=== PATIENT | female | born 1960 | race Caucasian/White ===

== ENCOUNTER 2018-11-04 00:38 | Inpatient (IN) | payer OTHER, MEDICARE ==
[2018-11-03 14:55] LABS: INR 0.87
[2018-11-04] VITALS (13 sets, daily range): BP systolic 113–147; BP diastolic 57–93
[~2018-11-04] VITALS: Ht 157.5 cm; Wt 92.5 kg
[~2018-11-04 00:38] MED LIST: ALB18R INH; ASPI81TA94 PO; ATOR40TA24 PO; B CO1TAB16 PO; CALC600T63 PO; CELE-1 PO; CHOL10005 PO; EREN70AU INJ; LAMO150T36 PO; LEVO100T95 PO; LIO5 PO; METF-450 PO; MULT-1176 PO; NEBI5TAB PO; PANT40TA65 PO; TRINTELLIX PO; VORT10TA PO; ZOLP-1 PO
--- NOTE | 2018-11-04 05:05 | LEVENE H&P ---
DATE OF ADMISSION: November 04, 2018 IDENTIFICATION/CHIEF COMPLAINT Sandra is a 57-year-old woman with a chief complaint of right knee pain. HISTORY OF PRESENT ILLNESS Patient has a longstanding history of knee arthritis, progressively painful and debilitating, refractory to conservative care. Surgery is indicated to relieve symptoms after failure of nonoperative measures. PAST MEDICAL HISTORY Notable for: 1. Hypertension. 2. Hypothyroidism. 3. Migraine headaches. 4. Prediabetes. ALLERGIES None. CURRENT MEDICATIONS 1. Synthroid 12.5 mcg a day. 2. Liothyronine 5 mcg p.o. daily. 3. Bystolic 5 mg p.o. daily. 4. Lamotrigine 150 mg p.o. b.i.d. 5. Pantoprazole 40 mg p.o. daily. 6. Atorvastatin 40 mg p.o. daily. 7. Trintellix 10 mg p.o. b.i.d. 8. Celebrex 200 mg p.o. daily. 9. Metformin 500 mg p.o. b.i.d. 10. A variety of vitamins. PAST SURGICAL HISTORY Notable for: 1. Appendectomy. 2. Cholecystectomy. 3. Hysterectomy. 4. Knee operation. 5. Hernia x2. 6. Lap-Band. 7. Thyroid surgery. 8. Breast reduction. 9. Carpal tunnel release. PHYSICAL EXAMINATION GENERAL: This is a healthy female who appears stated age. HEENT: Normocephalic, atraumatic. NECK: Supple. LUNGS: Clear. HEART: Regular. ABDOMEN: Soft. ORTHOPEDIC: The right knee has effusion present. She has crepitus noted. Gross stability is good. Extensor function is intact. Calves nontender. Neurovascular function is intact. Radiographs demonstrate end-stage knee arthritis. ASSESSMENT Right knee end-stage degenerative joint disease, refractory to conservative care. PLAN Per patient request, will proceed with total knee arthroplasty. Nature of the procedure, risks, benefits, the anticipated rehab course reviewed. The risks of the procedure include but are not limited to , major medical or anesthetic complications, infection, neurovascular injury, blood transfusion, stiffness, scarring, fracture, tendon rupture, instability, implant loosening, migration, or failure, persistent or recurrent pain, need for additional surgery, and other unforeseen. She understands and wishes to proceed. Signed permit is placed in the chart. No guarantees are given or implied. [facility]
[2018-11-04] MEDS ORDERED: NORMOSOL R SOLN(*) 1000 ML BAG 1,000 ML IV PRN ×2 (06:15→09:25)
[2018-11-04] MEDS ORDERED: ceFAZolin(*) 2GM/D5W 50ML 50 ML IVPB ONE (06:15)
[2018-11-04] MEDS ORDERED: ACETAMINOPHEN 500 MG TAB PO ONE (06:15)
[2018-11-04] MEDS ORDERED: MIDAZOLAM 2 MG/2 ML VIAL IVP PRN (06:15)
[2018-11-04] MEDS ORDERED: TRANEXAMIC AC 1000 MG/10ML SDV 1,000 MG in DEXTROSE 5% 50 ML BAG 50 ML IV ONE (06:15)
[2018-11-04] MEDS ORDERED: PREGABALIN 150 MG CAPSULE PO ONE (06:15)
[2018-11-04] MEDS ORDERED: ROPIVACAINE/EPI/CLONIDINE/KET 50 ML SYRINGE INJ ONE (06:15)
[2018-11-04] MEDS ORDERED: LIDOCAINE/SOD BICARB 8.4% SYR ID ONE (06:15)
[2018-11-04] MEDS ORDERED: DEXAMETHASONE SOD PHOS 10MG/ML ONE (07:01)
[2018-11-04] MEDS ORDERED: ONDANSETRON 4 MG/2 ML VIAL ONE (07:01)
[2018-11-04] MEDS ORDERED: PROPOFOL EMUL(*) 10MG/ML 20 ML 40 ML ONE (07:01)
[2018-11-04] MEDS ORDERED: PHENYLEPHRINE 10 MG/1 ML VIAL ONE (07:45)
[2018-11-04] MEDS ORDERED: VANCOMYCIN 1 GM VIAL ONE (08:22)
[2018-11-04] MEDS ORDERED: PROPOFOL EMUL(*) 10MG/ML 20 ML 120 ML ONE (08:29)
[2018-11-04] MEDS ORDERED: BENZOCAINE/MENTHOL 1 EACH LOZG PO PRN (09:25)
[2018-11-04] MEDS ORDERED: diphenhydrAMINE 25 MG CAP PO PRN (09:25)
[2018-11-04] MEDS ORDERED: MAGNESIUM HYDROXIDE* 30ML UDCP PO PRN (09:25)
[2018-11-04] MEDS ORDERED: BISACODYL 10 MG SUPP PR PRN (09:25)
[2018-11-04] MEDS ORDERED: FLUSH 10 ML SYR IVP PRN (09:25)
[2018-11-04] MEDS ORDERED: diphenhydrAMINE 50 MG/ML VIAL IVP PRN (09:25)
[2018-11-04] MEDS ORDERED: PROMETHAZINE 25 MG/ML 1 ML AMP IVP PRN (09:25)
--- NOTE | 2018-11-04 09:28 | OPERATIVE REPORT 1 ---
EVENT DATE: November 04, 2018 SURGEON: Dami Valencia MD ANESTHESIOLOGIST: Carmine Means MD ANESTHESIA: General plus spinal. INTERNAL COMBUSTION ENGINEER: Chadwick Dixon PA-C PREOPERATIVE DIAGNOSIS Right knee degenerative joint disease. POSTOPERATIVE DIAGNOSIS Right knee degenerative joint disease. PROCEDURE PERFORMED Right total knee arthroplasty. ESTIMATED BLOOD LOSS Minimal. DRAINS None. SPECIMENS None. COMPLICATIONS None apparent. TOURNIQUET TIME 41 minutes. IMPLANTS USED Gaby Triathlon knee system, a 3 right PS femur, a 3 standard tibial baseplate, a 33 mm universal symmetric all polyethylene patella button, 13 mm PS tibial tray liner. INDICATIONS The patient is 58-year-old woman with intractable pain that is felt related to end-stage knee arthritis. Surgery is indicated to relieve symptoms after failure of nonoperative measures. DESCRIPTION OF PROCEDURE The patient was taken to the operating room and placed supine on the operating table. Spinal block was administered by the anesthesiologist. General anesthesia was induced. Antibiotics and TXA were administered IV. The right lower extremity was prepped and draped in the usual sterile fashion for orthopedic surgery. The limb was exsanguinated with an Esmarch bandage. The tourniquet was inflated to 275 mmHg. A midline longitudinal incision was made and carried down through the skin and subcutaneous tissue to the extensor mechanism. A full-thickness flap was developed far enough medially to allow medial parapatellar arthrotomy to be performed. The patella was everted. The knee was brought into a flexed position. The fat pad, anterior horns of the menisci and cruciate ligaments were debrided. Subperiosteal release was initiated in a very limited titrated fashion to start to balance the knee. A step drill was used to enter the distal femur. A 10-inch long alignment guide was used to engage the isthmus. Cut was set for 6 degrees of valgus relative to anatomic axis. A 10 mm resection block was applied and pinned. Cut was made with an oscillating saw. The AP sizing guide was applied to the distal femoral cut and positioned for 3 degrees of external rotation relative to the posterior condyles. A size 3 was optimal without risk of notching. The four-in-one cutting block was applied. Anterior, posterior, posterior chamfer and anterior chamfer cuts were made respectively. A PS block was applied and centered mediolateral and the bone was resected from the box. The trial femur has nice [id number] fit. Attention was turned to tibial preparation. The extramedullary guide was applied and positioned for varus, valgus, posterior slope and rotation. This is set to resect 9 from the relatively intact lateral tibial plateau. It was dropped down a couple of millimeters to ensure an adequate cut. The block was pinned, extramedullary alignment check was made and the cut was made with an oscillating saw. After osteophyte removal and removal of posterior condylar bone, gaps were balanced and symmetric with no additional releases required. The size 3 baseplate provides optimal coverage without soft tissue overhang and this was inserted along with a trial liner and trial femur. The knee was brought to full extension. The patella was taken from a starting thickness of 18 mm to a residual of 14 with a free hand cut. The 33 provides optimal bony coverage without soft tissue overhang. Lug holes were drilled. The patella tracts nicely with a no-touch technique. Final tibial preparation consisted of ensuring appropriate rotational and translational position of the component. The box was reamed and the fin was punched. Surfaces were lavaged. A mix of polymethylmethacrylate is made and the components were cemented in a single stage. Irrisept irrigation is used during cement polymerization to minimize risks of postoperative infection. The wounds were copiously irrigated and when cement fully polymerized, trial liners were inserted. The 13 fills up the gap ideally, allowing the knee to drop to full extension without hyperextension, providing optimal soft tissue tension and stability. The tray was lavaged and dried and the actual liner was locked into the base point. Arthrotomy was closed in flexion with #2 Ethibond, subcutaneous with 3-0 Vicryl and skin with a ZipLine closure. Xeroform was applied followed by a dry, sterile dressing and a compression wrap. The patient was awakened from the anesthesia and taken to the recovery room in stable condition, having tolerated the procedure well. Plan is for standard TKA rehab protocol. [facility]
--- NOTE | 2018-11-04 10:06 | RADIOLOGY IMAGING REPORT ---
FACILITY: [facility] [place] PATIENT NAME: Sandra Becerra : 1960 MR: [id number] V: [id number] EXAM DATE: ORDERING PHYSICIAN: SONYA MAYA TECHNOLOGIST: Location: [facility] Patient: Sandra Becerra : 1960 Visit/Account:[id number] Date of Sevice: 11/04/2018 KNEE LIMITED RIGHT HISTORY: S/P TOTAL KNEE REPLACEMENT CHECK PLACEMENT Additional history: None COMPARISON: None. FINDINGS: Patient status post right total knee arthroplasty with patellar resurfacing. Hardware unremarkable i n appearance. Iatrogenic air seen within the joint and soft tissues. No free bone fragment seen. IMPRESSION: Status post right TKA unremarkable in appearance. Report Dictated By: Jhonathan Schuster MD at 11/04/2018 10:01 AM Report E-Signed By: Jhonathan Schuster MD at 11/04/2018 10:02 AM WSN:[email or web address]
[2018-11-04] MEDS: APAP/HYDROCODONE 325/7.5 TAB PO PRN ×3 (10:20→19:11)
[2018-11-04] MEDS ORDERED: ALBUTEROL SULFATE INH PRN (11:25)
[2018-11-04] MEDS ORDERED: INSULIN HUM LISPRO 100 UN/ML 3 ML VIAL SUBQ PRN (11:35)
--- NOTE | 2018-11-04 11:35 | Hospitalist Consultation ---
History of Present Illness Requesting Physician Dr. Valencia Reason for Consult Medical Management of Comorbidities Chief Complaint s/p right knee replacement History of Present Illness She was admitted s/p right knee replacement. It is reported the surgery went well and without complication. History Problems: (1) Depression Status: Chronic (2) GERD (gastroesophageal reflux disease) Status: Chronic (3) Hyperlipidemia Status: Chronic (4) Hypertension Status: Chronic (5) Hypothyroidism Status: Chronic (6) JUAN ANTONIO (obstructive sleep apnea) Status: Chronic (7) Type 2 diabetes mellitus Status: Chronic Home Meds Reported Medications Erenumab-Aooe (Aimovig Autoinjector) 70 Mg/Ml Auto.injct, 70 MG INJ Q30D 10/28/18 Albuterol Sulfate (VENTOLIN HFA) 18 Gm Inh, 2 PUFF INH Q4-6H PRN for WHEEZING, INH 10/28/18 Vortioxetine Hydrobromide (Brintellix) 10 Mg Tablet, 1 TAB PO BID 10/28/18 Multivits,Ca,Minerals/Iron/Fa (WOMEN'S DAILY CAPLET) 1 Each Tablet, 1 EACH PO QDAY 10/28/18 Aspirin (ASPIRIN) 81 Mg Tab.chew, 81 MG PO QHS, TAB.CHEW 10/28/18 Calcium Carbonate (CALCIUM) 600 Mg Tablet, 600 MG PO QDAY 10/28/18 B Complex With Vitamin C (SUPER B COMPLEX-VITAMIN C) 1 Each Tablet, 1 EACH PO QDAY 10/28/18 Cholecalciferol (Vitamin D3) (VITAMIN D3) 1,000 Unit Tablet, 5000 UNIT PO QDAY, TAB 10/28/18 Zolpidem Tartrate (AMBIEN) 5 Mg Tablet, 1 TAB PO QHS, TAB 10/28/18 Celecoxib (CELEBREX) 200 Mg Capsule, 200 MG PO QAM, CAPSULE 10/28/18 Metformin Hcl (METFORMIN HCL) 500 Mg Tablet, 1 TAB PO BID, TAB 10/28/18 Pantoprazole Sodium (PANTOPRAZOLE SODIUM) 40 Mg Tablet.dr, 40 MG PO QAM, TAB.SR 10/28/18 Lamotrigine (LAMOTRIGINE) 150 Mg Tablet, 150 MG PO BID 10/28/18 Nebivolol Hcl (BYSTOLIC) 5 Mg Tablet, 5 MG PO QAM 10/28/18 Atorvastatin Calcium (LIPITOR) 40 Mg Tablet, 1 TAB PO QAM, TAB 10/28/18 Liothyronine Sodium (LIOTHYRONINE SODIUM) 5 Mcg Tablet, 5 MCG PO QAM 10/28/18 Levothyroxine Sodium (SYNTHROID) 100 Mcg Tablet, 125 MCG PO QAM 10/28/18 Discontinued Reported Medications [Trintellix] No Conflict Check, 10 MG PO BID 10/28/18 Allergies: Coded Allergies: No Known Drug Allergies (Unverified , 10/28/18) Hx Smoking: Yes (1 PACK/WEEK X 10 YEARS) Smoking Status: Former Smoker When Quit Tobacco?: 2008 Caffeine Intake: Coffee Caffeine/Cups Per Day: 1/DAY Hx Alcohol Use: No Hx Substance Use Disorder: No History of IV Drug Use: No Review of Systems All Systems Reviewed/Normal: Yes, Except as Noted Exam Vital Signs Vital Signs Date Time Temp Pulse Resp B/P (MAP) Pulse Ox O2 Delivery O2 Flow Rate FiO2 11/04/18 09:59 97.6 82 16 118/66 (83) 95 Nasal Cannula 2.0 General Appearance: Alert, Awake, No Acute Distress, Afebrile Neuro: No Gross deficits Cardiovascular: Regular Rate and Rhythm Respiratory: No Respiratory Distress, Clear to Auscultation Psych: Alert & Oriented X3, Appropriate Mood & Affect Assessment and Plan Problems: (1) Status post right knee replacement Status: Acute Assessment & Plan: Followed by Dr. Valencia. She will be placed on Aspirin for DVT prophylaxis. (2) Hypertension Status: Chronic Assessment & Plan: Continue chronic Bystolic. This was restarted with hold parameters. (3) Type 2 diabetes mellitus Status: Chronic Assessment & Plan: Continue chronic Metformin (start tomorrow morning). She will also be placed on ADA diet, Ac/HS blood glucose monitoring, and SS insulin #1. (4) Hyperlipidemia Status: Chronic Assessment & Plan: Continue chronic Atorvastatin. (5) Hypothyroidism Status: Chronic Assessment & Plan: Secondary to thyroid cancer. Continue chronic Levothyroxine and Liothyronine. (6) Depression Status: Chronic Assessment & Plan: Continue chronic Brintellix. (7) GERD (gastroesophageal reflux disease) Status: Chronic Assessment & Plan: Continue chronic PPI. (8) JUAN ANTONIO (obstructive sleep apnea) Status: Chronic Assessment & Plan: She does use CPAP at home occasionally. She did not bring her machine to use during admission. At this time, she does not want any replacement except for oxygen to sleep. Venous Thromboembolism Antithrombotics Is Pt On Any Antithrombotics?: No Exam Sepsis Risk: No Definite Risk Problem Qualifiers (1) Hypertension: Hypertension type: essential hypertension Qualified Codes: I10 - Essential (primary) hypertension ELVIRA CARRANZAP Nov 04, 2018 11:35
[2018-11-04] MEDS ORDERED: ALBUTEROL 8 GM INHALER INH PRN (11:40)
[2018-11-04] MEDS: DIAZEPAM 5 MG TAB PO PRN ×2 (11:53→18:06)
--- NOTE | 2018-11-04 12:25 | NUR ---
Physical Therapy Impression PT eval completed with pt interview and chart review. Pt just completed ambulation with nursing to/from BR and c/o increased pain now. Pt tolerated CPM trng with education on self progression with flexion. Settings currently at 0-25 degrees due to increased pain. PT will return for a second session later this afternoon to address functional mobility once pain is more controlled. Physical Therapy Goals 1. Pt to be CGA/Min assist for bed mobility and supine<>sit trnsfrs 2. Pt to be SBA/CGA for sit to/from stand transfers 3. Pt to be SBA/Modified indep for ambulation x 100' with least restrictive device 4. Pt to kenneth up/down 4 steps with rail and SBA/Modified indep and least restrictive device. Patient's Goals
[2018-11-04] MEDS ORDERED: NS(*) 0.9% 250 ML BAG 250 ML ONE (16:40)
[2018-11-04] MEDS: ceFAZolin(*) 1 GM VIAL 1 GM in NS(*) 0.9% 100 ML MINI-BAG 100 ML IVPB SCH (16:52)
[2018-11-04] MEDS: CELECOXIB 200 MG CAP PO SCH (16:53)
--- NOTE | 2018-11-04 18:02 | NUR ---
Physical Therapy Impression Pt demos excellent ability to bear weight on involved LE, yet indicates increased pain. Walker was lowered to allow for better UE participation in order to off load TKA for improved pain management. Pt tolerated ambulation to/from doorway with step-to gait pattern. Pt educated on leg assistant professor of radiology use to improve indep with bed mobility and supine to/from sit. Pt also educated on self progression of flexion with CPM as tolerated. Physical Therapy Goals 1. Pt to be CGA/Min assist for bed mobility and supine<>sit trnsfrs 2. Pt to be SBA/CGA for sit to/from stand transfers 3. Pt to be SBA/Modified indep for ambulation x 100' with least restrictive device 4. Pt to kenneth up/down 4 steps with rail and SBA/Modified indep and least restrictive device. Patient's Goals
[2018-11-04] MEDS: ACETAMINOPHEN 325 MG TAB PO PRN (20:33)
[2018-11-04] MEDS: lamoTRIgine 100 MG TAB PO SCH (20:34)
[2018-11-04] MEDS: ZOLPIDEM TARTRATE 5 MG TAB PO PRN (20:34)
[2018-11-04] MEDS: VORTIOXETINE HYDROBROMIDE 10 MG TAB PO SCH (21:00)
[2018-11-04] MEDS ORDERED: VORTIOXETINE HYDROBROMIDE PO SCH (21:00)
[2018-11-05] MEDS: DIAZEPAM 5 MG TAB PO PRN ×5 (00:04→23:33)
[2018-11-05] MEDS: APAP/HYDROCODONE 325/7.5 TAB PO PRN ×6 (00:05→22:40)
[2018-11-05 00:08] VITALS: BP 133/81
[2018-11-05] MEDS: ceFAZolin(*) 1 GM VIAL 1 GM in NS(*) 0.9% 100 ML MINI-BAG 100 ML IVPB SCH ×2 (01:03→08:58)
[2018-11-05] MEDS: LEVOTHYROXINE SOD 0.125 MG TAB PO SCH (05:18)
[2018-11-05 07:59] VITALS: BP 132/83
[2018-11-05] MEDS: ATORVASTATIN 40 MG TAB PO SCH (08:58)
[2018-11-05] MEDS: PANTOPRAZOLE SOD 40 MG TABEC PO SCH (08:58)
[2018-11-05] MEDS: ASPIRIN 325 MG TAB PO SCH (08:58)
[2018-11-05] MEDS: metFORMIN HCL 500 MG TAB PO SCH ×2 (08:58→20:28)
[2018-11-05] MEDS: CELECOXIB 200 MG CAP PO SCH ×2 (08:58→16:57)
[2018-11-05] MEDS: LIOTHYRONINE SODIUM 5 MCG TAB PO SCH (08:59)
[2018-11-05] MEDS: NEBIVOLOL HCL 5 MG TAB PO SCH (08:59)
[2018-11-05] MEDS: lamoTRIgine 100 MG TAB PO SCH ×2 (09:00→20:30)
[2018-11-05] MEDS: VORTIOXETINE HYDROBROMIDE 10 MG TAB PO SCH ×2 (09:01→20:30)
--- NOTE | 2018-11-05 10:28 | Hospitalist Progress Note ---
Subjective Progress Notes Subjective She was admitted s/p knee replacement. She had no acute events overnight. Patient Complains of: Cardiovascular: No: Chest Pain Respiratory: No: Shortness of Breath Physical Exam Vital Signs Date Time Temp Pulse Resp B/P (MAP) Pulse Ox O2 Delivery O2 Flow Rate FiO2 11/05/18 10:09 94 11/05/18 07:59 Nasal Cannula 0.5 11/05/18 07:59 98.2 81 14 132/83 (99) Intake and Output 11/05/18 01:00 Intake Total 2148 ml Balance 2148 ml Intake Oral 444 ml IV Total 1704 ml # Voids 4 General Appearance: Alert, Awake, No Acute Distress, Afebrile Neuro: No Gross deficits Cardiovascular: Regular Rate and Rhythm Respiratory: No Respiratory Distress, Clear to Auscultation Psych: Alert & Oriented X3, Appropriate Mood & Affect Assessment and Plan Problems: (1) Status post right knee replacement Status: Acute Assessment & Plan: Followed by Dr. Valencia. She will be placed on Aspirin for DVT prophylaxis. (2) Hypertension Status: Chronic Assessment & Plan: Continue chronic Bystolic. This was restarted with hold parameters. (3) Type 2 diabetes mellitus Status: Chronic Assessment & Plan: Continue chronic Metformin. She will also be placed on ADA diet, Ac/HS blood glucose monitoring, and SS insulin #1. (4) Hyperlipidemia Status: Chronic Assessment & Plan: Continue chronic Atorvastatin. (5) Hypothyroidism Status: Chronic Assessment & Plan: Secondary to thyroid cancer. Continue chronic Levothyroxine and Liothyronine. (6) Depression Status: Chronic Assessment & Plan: Continue chronic Brintellix. (7) GERD (gastroesophageal reflux disease) Status: Chronic Assessment & Plan: Continue chronic PPI. (8) JUAN ANTONIO (obstructive sleep apnea) Status: Chronic Assessment & Plan: She does use CPAP at home occasionally. She did not bring her machine to use during admission. At this time, she does not want any replacement except for oxygen to sleep. Exam Sepsis Risk: No Definite Risk Problem Qualifiers (1) Hypertension: Hypertension type: essential hypertension Qualified Codes: I10 - Essential (primary) hypertension ELVIRA CARRANZA [employer] Nov 05, 2018 10:28
[2018-11-05 10:54] VITALS: Ht 157.5 cm; Wt 92.5 kg
--- NOTE | 2018-11-05 11:25 | NUR ---
Physical Therapy Impression Pt is doing exceptionally well. She is able to perform supine to sit with use of SPC as leg manager report without assistance. Pt demo's ability to increase ROM on CPM independently. Sit <> stand from EOB/chair, SBA/Mod I. Ambulation x 110' with FWW, SBA/Mod I. Pt on room air throughout, SpO2 94% after activity. Pt up in sarah chair with LE's elevated at end of session. Pt would like to complete stairs this afternoon to simulate entry into pt's home as she plans to D/C home tomorrow with OP PT. Physical Therapy Goals 1. Pt to be CGA/Min assist for bed mobility and supine<>sit trnsfrs 2. Pt to be SBA/CGA for sit to/from stand transfers 3. Pt to be SBA/Modified indep for ambulation x 100' with least restrictive device 4. Pt to kenneth up/down 4 steps with rail and SBA/Modified indep and least restrictive device. Patient's Goals
--- NOTE | 2018-11-05 14:34 | NUR ---
Physical Therapy Impression PT goals met with stair negotiation. From a mobility standpoint pt is ready for d/c when medically appropriate. Physical Therapy Goals 1. Pt to be CGA/Min assist for bed mobility and supine<>sit trnsfrs 2. Pt to be SBA/CGA for sit to/from stand transfers 3. Pt to be SBA/Modified indep for ambulation x 100' with least restrictive device 4. Pt to kenneth up/down 4 steps with rail and SBA/Modified indep and least restrictive device. Patient's Goals
[2018-11-05 14:42] VITALS: BP_SYST 101; BP_SYST 130; BP_DIAS 60; BP_DIAS 74
[2018-11-05 18:38] VITALS: BP 132/71
[2018-11-05] MEDS: ZOLPIDEM TARTRATE 5 MG TAB PO PRN (20:28)
[2018-11-05] MEDS: ACETAMINOPHEN 325 MG TAB PO PRN (20:28)
[2018-11-05 23:25] VITALS: BP 146/83
[2018-11-06] MEDS: APAP/HYDROCODONE 325/7.5 TAB PO PRN ×2 (02:59→09:38)
[2018-11-06 03:00] VITALS: BP 156/82
[2018-11-06] MEDS: LEVOTHYROXINE SOD 0.125 MG TAB PO SCH (05:30)
[2018-11-06] MEDS: DIAZEPAM 5 MG TAB PO PRN (05:30)
[2018-11-06 06:48] VITALS: BP 135/77
[2018-11-06] MEDS: NEBIVOLOL HCL 5 MG TAB PO SCH (08:28)
[2018-11-06] MEDS: CELECOXIB 200 MG CAP PO SCH (08:28)
[2018-11-06] MEDS: metFORMIN HCL 500 MG TAB PO SCH (08:28)
[2018-11-06] MEDS ORDERED: HYDR-654 PO (08:28)
[2018-11-06] MEDS: PANTOPRAZOLE SOD 40 MG TABEC PO SCH (08:28)
[2018-11-06] MEDS: ASPIRIN 325 MG TAB PO SCH (08:28)
[2018-11-06] MEDS: ATORVASTATIN 40 MG TAB PO SCH (08:28)
[2018-11-06] MEDS: LIOTHYRONINE SODIUM 5 MCG TAB PO SCH (08:28)
[2018-11-06] MEDS: lamoTRIgine 100 MG TAB PO SCH (08:29)
[2018-11-06] MEDS: VORTIOXETINE HYDROBROMIDE 10 MG TAB PO SCH (08:29)
[2018-11-06] MEDS ORDERED: ASPI-757 PO (09:14)
--- NOTE | 2018-11-06 09:17 | Hospitalist Progress Note ---
Subjective Progress Notes Subjective She was admitted s/p knee replacement. She had no acute events overnight. She would like to go home today. Patient Complains of: Cardiovascular: No: Chest Pain Respiratory: No: Shortness of Breath Physical Exam Vital Signs Date Time Temp Pulse Resp B/P (MAP) Pulse Ox O2 Delivery O2 Flow Rate FiO2 11/06/18 08:28 94 Room Air 11/06/18 06:48 98.2 78 14 135/77 (96) 0.5 Intake and Output 11/06/18 01:00 Intake Total 673 ml Balance 673 ml Intake Oral 570 ml IV Total 103 ml # Voids 6 General Appearance: Alert, Awake, No Acute Distress, Afebrile Neuro: No Gross deficits Cardiovascular: Regular Rate and Rhythm Respiratory: No Respiratory Distress, Clear to Auscultation GI: Soft and Non-Tender Psych: Alert & Oriented X3, Appropriate Mood & Affect Assessment and Plan Problems: (1) Status post right knee replacement Status: Acute Assessment & Plan: Followed by Dr. Valencia. She will be placed on Aspirin for DVT prophylaxis. (2) Hypertension Status: Chronic Assessment & Plan: Continue chronic Bystolic. This was restarted with hold parameters. (3) Type 2 diabetes mellitus Status: Chronic Assessment & Plan: Continue chronic Metformin. She will also be placed on ADA diet, Ac/HS blood glucose monitoring, and SS insulin #1. (4) Hyperlipidemia Status: Chronic Assessment & Plan: Continue chronic Atorvastatin. (5) Hypothyroidism Status: Chronic Assessment & Plan: Secondary to thyroid cancer. Continue chronic Levothyroxine and Liothyronine. (6) Depression Status: Chronic Assessment & Plan: Continue chronic Brintellix. (7) GERD (gastroesophageal reflux disease) Status: Chronic Assessment & Plan: Continue chronic PPI. (8) JUAN ANTONIO (obstructive sleep apnea) Status: Chronic Assessment & Plan: She does use CPAP at home occasionally. She did not bring her machine to use during admission. At this time, she does not want any replacement except for oxygen to sleep. She will resume CPAP at home like usual. Exam Sepsis Risk: No Definite Risk Problem Qualifiers (1) Hypertension: Hypertension type: essential hypertension Qualified Codes: I10 - Essential (primary) hypertension ELVIRA CARRANZA [facility] Nov 06, 2018 09:17
== END 2018-11-06 10:25 | disposition home or self-care (01) | DRG 470 ==
LOC: OR 00:38 → MED 09:57
PROVIDERS: ADMIT Orthopaedic Surgery; ATTEND Orthopaedic Surgery
PROC: 0SRC0J9 Replacement of Right Knee Joint with Synthetic Substitute, Cemented, Open Approach (ICD-10-PCS; principal; 2018-11-04 07:11)
DX: M17.11 Unilateral primary osteoarthritis, right knee (principal); I10 Essential (primary) hypertension; G47.33 Obstructive sleep apnea (adult) (pediatric); K21.9 Gastro-esophageal reflux disease without esophagitis; E11.9 Type 2 diabetes mellitus without complications; E03.9 Hypothyroidism, unspecified; F32.9 Major depressive disorder, single episode, unspecified; E66.9 Obesity, unspecified; E78.5 Hyperlipidemia, unspecified; Z87.891 Personal history of nicotine dependence; Z90.49 Acquired absence of other specified parts of digestive tract; Z99.81 Dependence on supplemental oxygen; Z79.84 Long term (current) use of oral hypoglycemic drugs; Z85.850 Personal history of malignant neoplasm of thyroid; Z68.37 Body mass index [BMI] 37.0-37.9, adult
CPT/HCPCS: 36415; 36416; 82948; 85610; 86850; 86900; 86901; 97161; C1713; C1776; J0690; J1100; J2370; J2405; J2704; J3370; J7050; J7060